=== PATIENT | male | born 1990 | race Caucasian/White ===

== ENCOUNTER 2023-01-20 17:05 | Outpatient (CLI) | payer BC, SELFPAY ==
[2023-01-20 17:38] LABS: Strep A DNA Probe* NOT DETECTED (Not Detectd)
== END 2023-01-20 17:06 | disposition home or self-care (01) ==
LOC: NFLDUCREF 17:06
PROVIDERS: Visit Provider Registered Nurse
DX: J02.9 Acute pharyngitis, unspecified (principal)
CPT/HCPCS: 87651

== ENCOUNTER 2023-08-16 12:50 | Outpatient (CLI) | payer BC, SELFPAY | END 2023-08-16 12:51 | disposition home or self-care (01) | LOC: NFLDREF 08-17 07:02 | PROVIDERS: Visit Provider Family Medicine | DX: N39.0 Urinary tract infection, site not specified (principal) | CPT/HCPCS: 87086 ==